=== PATIENT | female | born 1985 | race American Indian/Alaskan Native ===

== ENCOUNTER 2020-02-05 07:46 | Emergency (ER) | payer MEDICAID ==
[2020-02-05 08:24] VITALS: BP 148/82
--- NOTE | 2020-02-05 08:42 | Emergency Department Report ---
ED General Adult HPI - General Chief complaint: Eye Problems Stated complaint: PINKEYE,ELEVATED BLOOD PRESSURE Time Seen by Provider: 02/05/20 08:37 Source: patient Mode of arrival: Ambulatory Limitations: No Limitations - History of Present Illness Initial comments: Is a very pleasant 34-year-old female presents the emergency department with a chief complaint of bilateral purulent drainage from both eyes with erythema to the conjunctiva bilaterally. She denies any pain. She denies any periorbital edema. She also reports she is out of her blood pressure medication and her blood pressure is very elevated at home with a systolic of 200. She states she gets headaches when her blood pressure is elevated. She normally has a wrist cuff that checks her blood pressure. She has a history of hypertension and previously was on nifedipine 90 mg and HCTZ 25 mg but recently moved here and does not yet have a primary care doctor. She denies any associated fevers, chills, night sweats, dizziness, blurry vision, nausea,, diarrhea, weakness or any other associated symptoms. - Related Data Previous Rx's Medication Instructions Recorded Last Taken Type Erythromycin [Erythromycin Ophth 10 applic OP Q6HR #1 tube 02/05/20 Unknown Rx Oint] NIFEdipine [Adalat cc] 90 mg PO DAILY #30 tablet.er 02/05/20 Unknown Rx hydroCHLOROthiazide [Hctz] 12.5 mg PO QDAY #30 capsule 02/05/20 Unknown Rx Allergies Allergy/AdvReac Type Severity Reaction Status Date / Time No Known Allergies Allergy Unverified 02/05/20 08:24 ED Review of Systems ROS: Stated complaint: PINKEYE,ELEVATED BLOOD PRESSURE Other details as noted in HPI Comment: All other systems reviewed and negative Constitutional: denies: chills, fever Eyes: as per HPI, eye discharge. denies: eye pain, vision change ENT: denies: ear pain, throat pain Respiratory: denies: cough, shortness of breath, wheezing Cardiovascular: denies: chest pain, palpitations Endocrine: no symptoms reported Gastrointestinal: denies: abdominal pain, nausea, diarrhea Genitourinary: denies: urgency, dysuria, discharge Musculoskeletal: denies: back pain, joint swelling, arthralgia Skin: denies: rash, lesions Neurological: as per HPI, headache. denies: weakness, paresthesias Psychiatric: denies: anxiety, depression Hematological/Lymphatic: denies: easy bleeding, easy bruising ED Past Medical Hx - Past Medical History Previous Medical History?: Yes Hx Hypertension: Yes - Surgical History Past Surgical History?: No - Medications Home Medications: Home Medications Medication Instructions Recorded Confirmed Last Taken Type Erythromycin [Erythromycin Ophth 10 applic OP Q6HR #1 tube 02/05/20 Unknown Rx Oint] NIFEdipine [Adalat cc] 90 mg PO DAILY #30 tablet.er 02/05/20 Unknown Rx hydroCHLOROthiazide [Hctz] 12.5 mg PO QDAY #30 capsule 02/05/20 Unknown Rx ED Physical Exam - General Limitations: No Limitations General appearance: alert, in no apparent distress - Head Head exam: Present: atraumatic, normocephalic - Eye Eye exam: Present: normal appearance, PERRL, EOMI, conjunctival injection, other (There is conjunctival injection and purulent drainage in the corner of both eyes. There is no periorbital edema, no pain with extraocular movements, no periorbital tenderness.). Absent: periorbital swelling, periorbital tenderness Pupils: Present: normal accommodation - ENT ENT exam: Present: normal exam, normal orophraynx, mucous membranes moist - Neck Neck exam: Present: normal inspection, full ROM. Absent: tenderness, meningismus - Respiratory Respiratory exam: Present: normal lung sounds bilaterally. Absent: respiratory distress, wheezes, rales, rhonchi, stridor - Cardiovascular Cardiovascular Exam: Present: regular rate, normal rhythm, normal heart sounds. Absent: systolic murmur, diastolic murmur, rubs, gallop - GI/Abdominal GI/Abdominal exam: Present: soft, normal bowel sounds. Absent: distended, tenderness, guarding, rebound, rigid - Extremities Exam Extremities exam: Present: normal inspection, full ROM, normal capillary refill. Absent: tenderness - Back Exam Back exam: Present: normal inspection, full ROM. Absent: tenderness, CVA tenderness (R), CVA tenderness (L) - Neurological Exam Neurological exam: Present: alert, oriented X3, CN II-XII intact, normal gait - Psychiatric Psychiatric exam: Present: normal affect, normal mood - Skin Skin exam: Present: warm, dry, intact, normal color. Absent: rash ED Course Vital Signs 02/05/20 08:24 Pulse Rate 74 Respiratory 18 Rate Blood Pressure 148/82 [Right] O2 Sat by Pulse 100 Oximetry ED Medical Decision Making - Medical Decision Making Patient nontoxic in no acute distress. She is currently asymptomatic as far as not having any headache, chest pain, shortness of breath, lower extremity edema or any other associated symptoms and per the [employer] asymptomatic hypertension does not require any emergent work-up or intervention. I will refill the patient's chronic blood pressure medication. She will be given a primary care follow-up for blood pressure reevaluation and medication adjustment as needed. Recommended low-salt diet and return to the ER with any change or worsening symptoms. Her eyes were consistent with bacterial conjunctivitis and I will give her erythromycin ointment and recommended warm compresses and again PCP follow-up. She verbalized understand the diagnosis, treatment plan and follow-up instructions and all of her questions were answered. - Differential Diagnosis Conjunctivitis, iritis, periorbital cellulitis Critical care attestation.: If time is entered above; I have spent that time in minutes in the direct care of this critically ill patient, excluding procedure time. ED Disposition Clinical Impression: Asymptomatic hypertension Conjunctivitis, acute, bilateral Qualifiers: Acute conjunctivitis type: bacterial Qualified Code(s): H10.33 - Unspecified acute conjunctivitis, bilateral Disposition: DC-01 TO HOME OR SELFCARE Is pt being admited?: No Condition: Stable Instructions: Hypertension (ED), Bacterial Conjunctivitis, Adult, Hypertension, Adult Prescriptions: NIFEdipine [Adalat cc] 90 mg PO DAILY #30 tablet.er Erythromycin [Erythromycin Ophth Oint] 10 applic OP Q6HR #1 tube hydroCHLOROthiazide [Hctz] 12.5 mg PO QDAY #30 capsule Referrals: [facility] [Provider Group] - 3-5 Days GEOVANNY TOURE MD [Staff Physician] - 3-5 Days SHANNON OAKLEY MD [Staff Physician] - 3-5 Days Time of Disposition: 08:42
== END 2020-02-05 08:51 | disposition home or self-care (01) ==
LOC: ED 07:46
DX: I10 Essential (primary) hypertension (principal); Z79.899 Other long term (current) drug therapy; H10.33 Unspecified acute conjunctivitis, bilateral
CPT/HCPCS: 99282

== ENCOUNTER 2021-04-18 17:32 | Emergency (ER) | payer MEDICAID ==
[2021-04-18 18:21] VITALS: BP 149/98
[2021-04-18] MEDS ORDERED: diphenhydrAMINE 50 MG/ML VIAL IV ONE (19:13)
[2021-04-18] MEDS ORDERED: SODIUM CHLORIDE 0.9% 1000 ML 1,000 ML IV ONE (19:13)
[2021-04-18] MEDS ORDERED: METOCLOPRAMIDE 10 MG/2 ML INJ IV ONE (19:13)
[2021-04-18] MEDS ORDERED: ACETAMINOPHEN 325 MG TAB PO ONE (19:13)
--- NOTE | 2021-04-18 19:15 | Event Note ---
ED Screening Note ED Screening Note: Patient is a 35-year-old female presents emergency room with complaints of a frontal headache that began 2 days ago He states that she also has been having nausea and vomiting but she states that she is and she always has nausea and vomiting and her medications are not helping Patient states that today she stood up very quickly and was lightheaded and states she was out of it for 2 seconds She states today she was feeling some mild shortness of breath She denies any chest pain, fever, diarrhea, cough Past medical history of hypothyroidism and hypertension This initial assessment/diagnostic orders/clinical plan/treatment(s) is/are subject to change based on patients health status, clinical progression and re- assessment by fellow clinical providers in the ED. Further treatment and workup at subsequent clinical providers discretion. Patient/guardian urged not to elope from the ED as their condition may be serious if not clinically assessed and managed. Initial orders include: labs, urine, ekg, meds
[2021-04-18 19:34] LABS: Bilirubin,Urine NEG (Negative); Blood,Urine NEG (Negative); Color,Urine Yellow (Yellow)
--- NOTE | 2021-04-18 19:53 | Emergency Department Report ---
ED General Adult HPI - General Chief complaint: Headache Stated complaint: HEADACHE 12 WEEKS PUI?: Yes Time Seen by Provider: 04/18/21 19:22 Source: patient, RN notes reviewed, old records reviewed Mode of arrival: Ambulatory Limitations: No Limitations - History of Present Illness Initial comments: The patient was evaluated in the emergency department for symptoms described in the history of present illness. He/she was evaluated in the context of the global COVID-19 pandemic, which necessitated consideration that the patient might be at risk for infection with the virus that causes COVID-19. Institutional protocols and algorithms that pertain to the evaluation of patients at risk for COVID-19 are in a state of rapid change based on information released by regulatory bodies including the CDC and federal and state organizations. These policies and algorithms were followed during the patient's care in the emergency department. Please note that these policies, procedures and recommendations changed on a rapid basis. The patient is a 34-year-old female, who typically follows with [facility]. She reports that she is 12 weeks , and has had confirmatory outpatient ultrasound confirmation of intrauterine . She is 7 para 1. Past medical history significant for body mass index of 39, obstructive sleep apnea, not currently on a CPAP, COVID-19 vaccination not complete, and distant history of gastric bypass in 2019. The patient presents to the ER today with a complaint of frontal headache. The headache is present for 2 to 3 days. The headache is not sudden or thunderclap in nature. The headache is not maximal in intensity. The headache is not described as worst headache of the life. Patient also describes sensation of dehydration, with nausea and vomiting. Patient currently taking Zofran, Diclegis, and Phenergan. She denies urinary symptoms. Patient also endorses intermittent diarrhea. Patient reports no Covid contacts. Patient also endorses that she spends around 4 to 5 hours a day on a cellular phone/electronic device. -: Gradual, days(s) Location: head Radiation: non-radiation Severity scale (0 -10): 8 Quality: aching Consistency: constant Improves with: rest Worsens with: none - Related Data Previous Rx's Medication Instructions Recorded Last Taken Type NIFEdipine [Adalat cc] 90 mg PO DAILY #30 tablet.er 02/05/20 Unknown Rx Acetaminophen [Non-Aspirin Extra 500 mg PO Q6HR PRN #30 tablet 04/18/21 Unknown Rx Strength] Katherin Root [Katherin] 250 mg PO QID PRN #30 capsule 04/18/21 Unknown Rx Metoclopramide [Reglan] 10 mg PO QID PRN #30 tablet 04/18/21 Unknown Rx Potassium Chloride [K-Dur] 20 meq PO QDAY #30 tab 04/18/21 Unknown Rx Allergies Allergy/AdvReac Type Severity Reaction Status Date / Time No Known Allergies Allergy Verified 04/18/21 19:53 ED Review of Systems ROS: Stated complaint: HEADACHE 12 WEEKS Other details as noted in HPI Constitutional: denies: fever Eyes: denies: eye discharge ENT: congestion Respiratory: denies: wheezing Cardiovascular: denies: chest pain Gastrointestinal: nausea, vomiting, diarrhea. denies: abdominal pain Genitourinary: denies: dysuria Neurological: headache. denies: weakness ED Past Medical Hx - Past Medical History Hx Hypertension: Yes - Medications Home Medications: Home Medications Medication Instructions Recorded Confirmed Last Taken Type NIFEdipine [Adalat cc] 90 mg PO DAILY #30 tablet.er 02/05/20 Unknown Rx Acetaminophen [Non-Aspirin Extra 500 mg PO Q6HR PRN #30 tablet 04/18/21 Unknown Rx Strength] Katherin Root [Katherin] 250 mg PO QID PRN #30 capsule 04/18/21 Unknown Rx Metoclopramide [Reglan] 10 mg PO QID PRN #30 tablet 04/18/21 Unknown Rx Potassium Chloride [K-Dur] 20 meq PO QDAY #30 tab 04/18/21 Unknown Rx ED Physical Exam - General Limitations: No Limitations General appearance: alert, in no apparent distress - Head Head exam: Present: atraumatic, normocephalic - Eye Eye exam: Present: normal appearance, PERRL, EOMI, other (Visual acuity intact to finger counting, color perception, reading at a close distance). Absent: nystagmus - ENT ENT exam: Present: normal exam, normal orophraynx, mucous membranes moist, normal external ear exam - Neck Neck exam: Present: normal inspection. Absent: tenderness, meningismus - Respiratory Respiratory exam: Present: normal lung sounds bilaterally. Absent: respiratory distress, wheezes, rales, rhonchi, stridor, decreased breath sounds - Cardiovascular Cardiovascular Exam: Present: regular rate, normal rhythm, normal heart sounds. Absent: bradycardia, tachycardia, irregular rhythm, systolic murmur, diastolic murmur, rubs, gallop - GI/Abdominal GI/Abdominal exam: Present: soft, normal bowel sounds. Absent: distended, tenderness, guarding, rebound, rigid, pulsatile mass - Extremities Exam Extremities exam: Present: normal inspection, full ROM, other (2+ pulses noted in the bilateral upper and lower extremities. There is no palpable cord. negative Homans sign. Muscular compartments are soft. The pelvis is stable.). Absent: pedal edema, calf tenderness - Back Exam Back exam: Present: normal inspection, full ROM. Absent: tenderness, CVA tenderness (R), CVA tenderness (L), paraspinal tenderness, vertebral tenderness - Neurological Exam Neurological exam: Present: alert, oriented X3, normal gait (There is no past- pointing. There is no pronator drift. There is normal [id number]), other (No facial droop. Tongue midline. Extraocular movements intact bilaterally. Facial sensation intact to light touch in V1, V2, V3 distribution bilaterally. 5 and a 5 strength in 4 extremities. Sensation intact to light touch in 4 ex tremities.). Absent: motor sensory deficit - Psychiatric Psychiatric exam: Present: normal affect, normal mood - Skin Skin exam: Present: warm, dry, intact, normal color. Absent: rash ED Course Vital Signs 04/18/21 18:20 Temperature 99.3 F Pulse Rate 77 Respiratory 20 Rate Blood Pressure 149/98 [Right] O2 Sat by Pulse 99 Oximetry ED Medical Decision Making - Lab Data Result diagrams: 04/18/21 19:58 04/18/21 19:58 Vital Signs 04/18/21 18:20 Temperature 99.3 F Pulse Rate 77 Respiratory 20 Rate Blood Pressure 149/98 [Right] O2 Sat by Pulse 99 Oximetry Lab Results 04/18/21 04/18/21 04/18/21 Range/Units 19:58 19:58 Unknown WBC 9.7 (4.5-11.0) K/mm3 RBC 4.45 (3.65-5.03) M/mm3 Hgb 11.4 (10.1-14.3) gm/dl Hct 34.6 (30.3-42.9) % MCV 78 L (79-97) fl MCH 26 L (28-32) pg MCHC 33 (30-34) % RDW 14.7 (13.2-15.2) % Plt Count 396 (140-440) K/mm3 Lymph % (Auto) 22.5 (13.4-35.0) % [place] % (Auto) 6.9 (0.0-7.3) % Eos % (Auto) 1.8 (0.0-4.3) % Baso % (Auto) 0.2 (0.0-1.8) % Lymph # (Auto) 2.2 (1.2-5.4) K/mm3 [place] # (Auto) 0.7 (0.0-0.8) K/mm3 Eos # (Auto) 0.2 (0.0-0.4) K/mm3 Baso # (Auto) 0.0 (0.0-0.1) K/mm3 Seg Neutrophils % 68.6 (40.0-70.0) % Seg Neutrophils # 6.7 (1.8-7.7) K/mm3 Carbon Dioxide 20 L (22-30) mmol/L Anion Gap 17 mmol/L BUN 4 L (7-17) mg/dL Creatinine 0.4 L (0.6-1.2) mg/dL Estimated GFR > 60 ml/min BUN/Creatinine Ratio 10 % Glucose 90 (65-100) mg/dL Calcium 8.4 (8.4-10.2) mg/dL Magnesium 1.90 (1.7-2.3) mg/dL Total Bilirubin 0.30 (0.1-1.2) mg/dL AST 10 (5-40) units/L ALT 10 (7-56) units/L Alkaline Phosphatase 65 (35-129) units/L Total Protein 6.9 (6.3-8.2) g/dL Albumin 3.3 L (3.9-5) g/dL Albumin/Globulin Ratio 0.9 % Urine Color Yellow (Yellow) Urine Turbidity Slightly-cloudy (Clear) Urine pH 6.0 (5.0-7.0) Ur Specific [place] 1.028 (1.003-1.030) Urine Protein 100 mg/dl (Negative) mg/dL Urine Glucose (UA) Neg (Negative) mg/dL Urine Ketones Tr (Negative) mg/dL Urine Blood Neg (Negative) Urine Nitrite Neg (Negative) Urine Bilirubin Neg (Negative) Urine Urobilinogen 4.0 (<2.0) mg/dL Ur Leukocyte Esterase Neg (Negative) Urine WBC (Auto) 0.0 (0.0-6.0) /HPF Urine RBC (Auto) 0.0 (0.0-6.0) /HPF - EKG Data -: EKG Interpreted by Me EKG shows normal: sinus rhythm Rate: normal - EKG Data 04/18/21 21:18 The EKG shows sinus tachycardia, with a rate of 101 bpm. Normal axis, normal P wave axis, high left ventricular voltage. QTC 4 7 7 ms. Abnormal EKG. Not a STEMI. EKG interpreted at 19: 43 - Radiology Data Differential diagnosis, including but not limited to: Migraine headache, tension headache, cluster headache, obstructive sleep apnea, nausea and vomiting in , dehydration, electrolyte derangement, excessive cell phone use, obesity, body mass index of 39, COVID-19 vaccination not complete Assessment and plan: 34-year-old female, who was afebrile, with reassuring vital signs, clinically sober, with a GCS of 15, NIH score of 0, with a complaint of headache, with nausea and vomiting. Headache likely multifactorial, including probable obesity, obstructive sleep apnea, excessive cell phone use, nausea and vomiting, and dehydration. Patient treated supportively and symptomatically here in the emergency room. She is noted to be on her cell phone, not in any acute distress on multiple repeat evaluations. Diet and lifestyle modifications, compliance with CPAP, outpatient COVID-19 testing (last test was 2 weeks ago), also encouraged to complete COVID-19 vaccination series. Symptomatic and supportive care for this. EKG unremarkable, laboratory studies reviewed and appreciated. She is already taking Zofran, Diclegis, and Phenergan. She may take Tylenol [id number], and we will add on katherin. She can follow-up with outpatient [facility] at [facility]. Patient is observed in this ER for hours without clinical decompensation. Return precautions reviewed. Critical care attestation.: If time is entered above; I have spent that time in minutes in the direct care of this critically ill patient, excluding procedure time. ED Disposition Clinical Impression: Nausea and vomiting in , Dehydration, Hypokalemia, Headache, COVID-19 vaccination not done, BMI 39.0-39.9,adult Disposition: 01 HOME / SELF CARE / HOMELESS Is pt being admited?: No Does the pt Need Aspirin: No Condition: Good Additional Instructions: We recommend that the patient complete COVID-19 vaccination series. We also recommend that the patient minimize electronic/cellular phone use for only essential reasons. Patient also found to have body mass index of 39, recommend aggressive weight loss, exercise as tolerated, and outpatient follow-up with your primary care doctor or lumber tripper for outpatient sleep testing, to ascertain need for nocturnal BiPAP/CPAP. Patient may take the prescribed katherin, Reglan tablets as needed for nausea and vomiting, and she may also continue home Diclegis, Zofran, and Phenergan, for nausea and vomiting. Patient may consume foods that are high in potassium, such as banana, avocado, or potato, or take the potassium supplementation as directed. Follow-up with your primary care doctor or lumber tripper within the next 2 weeks for evaluation for repeat sleep study. Follow-up with your outpatient [facility] physician within the next week for nausea and vomiting of . Please return to the emergency room right away with new pain, worsened pain, migration of pain, projectile vomiting, change in mental status, confusion, inability tolerate liquid feeds, new, worsened or different symptoms not present on the initial emergency room evaluation Referrals: [facility] [Provider Group] - 3-5 Days GEOVANNY TOURE MD [Staff Physician] - 3-5 Days GIL MONTELONGO MD [Staff Physician] - 3-5 Days
[2021-04-18] MEDS ORDERED: D5W/0.45% NACL 1,000 ML IV SCH (20:00)
[2021-04-18 20:40] LABS: Basophils % (Auto) 0.2 % (0.0-1.8); Eosinophils # (Auto) 0.2 K/mm3 (0.0-0.4); Eosinophils % (Auto) 1.8 % (0.0-4.3); Hematocrit 34.6 % (30.3-42.9); Hemoglobin 11.4 gm/dl (10.1-14.3); Lymphocytes # (Auto) 2.2 K/mm3 (1.2-5.4); Lymphocytes % (Auto) 22.5 % (13.4-35.0); Mean Corpuscular HGB Conc 33 % (30-34); Mean Corpuscular Volume 78 fl (79-97); Monocytes # (Auto) 0.7 K/mm3 (0.0-0.8); Monocytes % (Auto) 6.9 % (0.0-7.3); Platelet Count 396 K/mm3 (140-440); Red Blood Count 4.45 M/mm3 (3.65-5.03); Red Cell Distribution Width 14.7 % (13.2-15.2)
[2021-04-18 20:42] LABS: Alanine Aminotransferase 10 units/L (7-56); Albumin 3.3 g/dL (3.9-5); Blood Urea Nitrogen 4 mg/dL (7-17); Calcium 8.4 mg/dL (8.4-10.2); Hemolysis Index 1
[2021-04-18 20:43] LABS: BUN/Creatinine Ratio 10
[2021-04-18] MEDS ORDERED: POTASSIUM CHLORIDE ER 20 MEQ TAB PO ONE (21:18)
--- NOTE | 2021-04-19 09:10 | Electrocardiograph Report ---
[facility] Test Date: 2021-04-18 Test Time: 19:43:08 Pat Name: KARIS HOLDEN Department: Room: Gender: F Ramp Manager: MATT : 1986-07-03 Requested By: MEÑO MARINO Order Number: [id number] Reading MD: Neisha Kirby Measurements Intervals [place] Rate: 101 P: 52 WI: 133 QRS: 16 QRSD: 87 T: QT: 367 QTc: 477 Interpretive Statements Sinus tachycardia No previous ECG available for comparison Electronically Signed On 04-19-2021 9:09:42 EST by Neisha Kirby
== END 2021-04-18 22:20 | disposition home or self-care (01) ==
LOC: ED 17:32
DX: O26.891 Other specified pregnancy related conditions, first trimester (principal); O21.9 Vomiting of pregnancy, unspecified; R51.9 Headache, unspecified; E86.0 Dehydration; E87.6 Hypokalemia; I10 Essential (primary) hypertension; Z3A.12 12 weeks gestation of pregnancy; Z79.899 Other long term (current) drug therapy
CPT/HCPCS: 36415; 80053; 81001; 83735; 85025; 93005; 93010; 96361; 96374; 96375; 99283; J1200; J2765; J7030; J7070; Q0162

== ENCOUNTER 2021-07-09 07:12 | Outpatient (CLI) | payer MEDICAID ==
[2021-07-09] MEDS ORDERED: NIFEdipine XL 60 MG TAB PO ONE (09:00)
[2021-07-09] MEDS ORDERED: LACTATED RINGERS 500 ML IV ONE (09:00)
[2021-07-09 10:18] LABS: Bilirubin,Urine Negative (Negative); Blood,Urine Negative (Negative); Color,Urine Yellow (Yellow)
[2021-07-09 10:35] VITALS: BP 127/65
[2021-07-09 11:25] LABS: Bacteria,Urine 3+ /HPF (Negative)
== END 2021-07-09 11:01 | disposition home or self-care (01) ==
LOC: APU 07:12 → TRG 07:12
PROVIDERS: ATTEND Obstetrics & Gynecology
DX: O26.892 Other specified pregnancy related conditions, second trimester (principal); R10.9 Unspecified abdominal pain; Z3A.24 24 weeks gestation of pregnancy
CPT/HCPCS: 59025; 81001; 87086